=== PATIENT | female | born 1985 | race Caucasian/White ===

== ENCOUNTER 2020-06-10 04:05 | Emergency (ER) | payer MEDICAID ==
[~2020-06-10] VITALS: Ht 162.6 cm; Wt 77.1 kg
[~2020-06-10 04:05] MED LIST: IRON325 PO; PRENATAL PO; UNISOM25 MG PO; ZANTAC 150MG T150 MG PO
[2020-06-10] MEDS ORDERED: LORCET 5-325 M1 EACH PO (05:30)
[2020-06-10] MEDS ORDERED: MOBIC7.5 M1 PO (05:30)
[2020-06-10] MEDS ORDERED: FLEXERIL PO (05:30)
[2020-06-10 05:39] VITALS: BP 128/70
== END 2020-06-10 05:41 | disposition home or self-care (01) ==
LOC: M.ERS 04:05
DX: M76.892 Other specified enthesopathies of left lower limb, excluding foot (principal); K21.9 Gastro-esophageal reflux disease without esophagitis; F17.210 Nicotine dependence, cigarettes, uncomplicated; Z88.0 Allergy status to penicillin